=== PATIENT | female | born 1945 | race Caucasian/White ===

== ENCOUNTER → 2020-08-01 | Outpatient (CLI) | payer MEDICARE ==
[~2020-08-01] MED LIST: ASPIRIN325 MG PO; ATORVASTATIN CA20 MG PO; CLOPIDOGREL75 MG PO; GLIMEPIRIDE4 MG PO; HUMULIN R100 UNIT/2 SQ; HYDROCODON-ACE1 EA12 PO; ISOSORBIDE MONO20 MG PO; LOSARTAN POTASS50 MG PO; METFORMIN HCL1000 MG PO; METOPROLOL TART25 MG PO; NITROGLYCERIN0.4 MG SL; REGADENOSON 0.4 MG/5 ML SYR IV ONE; ROPINIROLE HCL1 MG PO
== END ==
LOC: CARD 08:18
PROVIDERS: ATTEND Internal Medicine
DX: R07.9 Chest pain, unspecified (principal); I25.10 Atherosclerotic heart disease of native coronary artery without angina pectoris; G45.9 Transient cerebral ischemic attack, unspecified; I10 Essential (primary) hypertension; E78.5 Hyperlipidemia, unspecified
CPT/HCPCS: 78452; 93017; 93306; 93880; A9502; J2785